=== PATIENT | male | born 1945 | race Two or more races ===

== ENCOUNTER 2019-08-02 11:02 | Day surgery (SDC) | payer MEDICARE, MEDICAID ==
[~2019-08-02] VITALS: Ht 180.3 cm; Wt 110.0 kg
[~2019-08-02 11:02] MED LIST: PREN1TAB41 PO
[2019-08-02 11:10] VITALS: BP 137/84
[2019-08-02] MEDS ORDERED: LEVO75TA7 PO (11:15)
[2019-08-02] MEDS ORDERED: HYDR-3780 PO (11:17)
[2019-08-02] MEDS ORDERED: HYDR5TAB8 PO (11:17)
[2019-08-02] MEDS ORDERED: TEST200V10 IM (11:19)
[2019-08-02] MEDS ORDERED: fentaNYL/PF 50MCG/1 ML 2ML syringe ONE (11:29)
[2019-08-02] MEDS ORDERED: LIDOcaine Viscous 15ml cup ONE (11:30)
[2019-08-02] MEDS ORDERED: MIDAZolam 5mg/5ml vial ONE (11:30)
[2019-08-02 13:50] VITALS: BP 118/69
[2019-08-02 13:58] VITALS: BP 111/69
[2019-08-02 14:08] VITALS: BP 118/70
[2019-08-02 14:18] VITALS: BP 116/65
== END 2019-08-02 14:35 | disposition home or self-care (01) ==
LOC: GI LAB 11:02
PROVIDERS: ATTEND Specialist
DX: I78.0 Hereditary hemorrhagic telangiectasia (principal); K31.819 Angiodysplasia of stomach and duodenum without bleeding; K44.9 Diaphragmatic hernia without obstruction or gangrene; K22.10 Ulcer of esophagus without bleeding; K31.89 Other diseases of stomach and duodenum; Z79.899 Other long term (current) drug therapy
CPT/HCPCS: 43227; G0500; J2250; J3010; J7040; 99152; A4620

== ENCOUNTER 2020-01-31 10:49 | Day surgery (SDC) | payer MEDICARE, MEDICAID ==
[~2020-01-31] VITALS: Ht 180.3 cm; Wt 106.4 kg
[~2020-01-31 10:49] MED LIST changes: +HYDR-3780 PO; +HYDR5TAB8 PO; +LEVO75TA7 PO; -PREN1TAB41 PO; +TEST200V10 IM
[2020-01-31 10:58] VITALS: BP 156/75
[2020-01-31] MEDS ORDERED: fentaNYL/PF 50MCG/1 ML 2ML syringe ONE (11:31)
[2020-01-31] MEDS ORDERED: MIDAZolam 5mg/5ml vial ONE (11:31)
[2020-01-31] MEDS ORDERED: LIDOcaine Viscous 15ml cup ONE (11:32)
[2020-01-31 14:44] VITALS: BP 136/72
[2020-01-31 14:54] VITALS: BP 133/73
[2020-01-31 15:04] VITALS: BP 125/65
[2020-01-31 15:14] VITALS: BP 144/73
== END 2020-01-31 15:47 | disposition home or self-care (01) ==
LOC: GI LAB 10:49
PROVIDERS: ATTEND Specialist
DX: K31.819 Angiodysplasia of stomach and duodenum without bleeding (principal); K44.9 Diaphragmatic hernia without obstruction or gangrene; K29.60 Other gastritis without bleeding
CPT/HCPCS: 43270; G0500; J2250; J3010; J7040; 43227; 99152; 99153; A4620

== ENCOUNTER 2021-02-09 07:58 | Day surgery (SDC) | payer MEDICARE, MEDICAID ==
[~2021-02-09] VITALS: Ht 181.6 cm; Wt 102.3 kg
[~2021-02-09 07:58] MED LIST changes: -HYDR-3780 PO; +HYDR-4318 PO; +HYDR5TAB14 PO; -HYDR5TAB8 PO
[2021-02-09] MEDS ORDERED: fentaNYL/PF 50MCG/1 ML 2ML syringe ONE (08:09)
[2021-02-09] MEDS ORDERED: LIDOcaine Viscous 15ml cup ONE (08:09)
[2021-02-09] MEDS ORDERED: MIDAZolam 1 MG/ML 5ML VIAL ONE (08:09)
[2021-02-09 08:10] VITALS: BP 175/83
[2021-02-09] MEDS ORDERED: glucagon, human recombinant 1mg kit ONE (08:44)
[2021-02-09 08:54] VITALS: BP 125/67
[2021-02-09 09:04] VITALS: BP 114/63
[2021-02-09 09:14] VITALS: BP 129/67
[2021-02-09 09:24] VITALS: BP 123/63
== END 2021-02-09 09:40 | disposition home or self-care (01) ==
LOC: GI LAB 07:58
PROVIDERS: ATTEND Specialist
DX: K31.819 Angiodysplasia of stomach and duodenum without bleeding (principal); K44.9 Diaphragmatic hernia without obstruction or gangrene; K31.89 Other diseases of stomach and duodenum; D50.9 Iron deficiency anemia, unspecified
CPT/HCPCS: 43255; G0500; J1610; J2250; J3010; J7040; 43227; 99152; A4620